=== PATIENT | female | born 1975 | race Caucasian/White ===

== ENCOUNTER 2018-10-24 05:54 | Emergency (ER) | payer OTHER ==
[~2018-10-24] VITALS: Ht 162.6 cm; Wt 80.0 kg
[2018-10-24 07:34] VITALS: BP 114/70
== END 2018-10-24 07:35 | disposition home or self-care (01) ==
LOC: ED 06:53
DX: M54.5 Low back pain (principal)
CPT/HCPCS: 72131; 96372; 99284; J1885